=== PATIENT | male | born 1990 ===

== ENCOUNTER 2019-07-13 09:55 | Emergency (ER) | payer SELFPAY ==
[~2019-07-13] VITALS: Ht 175.3 cm; Wt 260.0 kg
[2019-07-13 10:16] VITALS: BP 136/89
== END 2019-07-13 11:33 | disposition home or self-care (01) ==
LOC: ER 09:55
DX: L03.115 Cellulitis of right lower limb (principal); R11.0 Nausea; R21 Rash and other nonspecific skin eruption; R50.9 Fever, unspecified; F17.200 Nicotine dependence, unspecified, uncomplicated
CPT/HCPCS: 99283